=== PATIENT | female | born 1995 | race Hispanic/Latino ===

== ENCOUNTER 2023-01-08 13:43 | Emergency (ER) | payer SELFPAY ==
[2023-01-08 13:43] VITALS: BP 125/59; PULSE 66; RESP 15; TEMP 36.7; O2SAT 100; BMI 24.1
--- NOTE | 2023-01-08 13:47 | EKG12_ITS ---
Test Reason : CP Blood Pressure : / mmHG Vent. Rate : 068 BPM Atrial Rate : 068 BPM P-R Int : 122 ms QRS Dur : 082 ms QT Int : 386 ms P-R-T Axes : 018 066 047 degrees QTc Int : 410 ms Normal sinus rhythm Normal ECG Confirmed by DMITRY WOLFE MD ([id number]), newspaper or periodical editor LAVERN MICHAUD ([id number]) on 01/09/2023 9:46:22 AM Referred By: TL Confirmed By:DMITRY WOLFE MD
--- NOTE | 2023-01-08 13:54 | NURSING ---
NO OLD EKGS
--- NOTE | 2023-01-08 14:00 | RAD_ITS ---
STUDY: X-RAY CHEST REASON FOR EXAM: Female, 27 years old. CP TECHNIQUE: Single AP portable view of the chest. COMPARISON: None. FINDINGS: The lungs are clear and expanded. There is no demonstrated pleural abnormality. Normal size heart. Normal mediastinum and mehreen. Normal visualized pulmonary arteries. Normal visualized aortic arch and descending thoracic aorta. Normal visualized thoracic spine. Normal visualized ribs, clavicles, and shoulders. There is no demonstrated abnormality of the visualized soft tissue structures of the upper abdomen. RAD/Chest 1 View (Portable) IMPRESSION: Normal x-ray examination of the chest. Electronically Signed: Des Fontenot MD at 14:13 EST ,
--- NOTE | 2023-01-08 15:38 | ED.VIS.CHEST ---
HPI History of Present Illness Chief Complaint: Chest Pain Informant: patient Onset/Context/Timing Onset: Today Location: Left Chest Current Severity: Mild Maximum Severity: Moderate Worsened By: Not Worsened By Breathing or Coughing Relieved By: Nothing Narrative Narrative: Patient states she started having some left neck discomfort last night while she was at work, persist today worse with moving her head certain directions, she has a little bit of pressure in her left ear. No URI symptoms or nasal congestion, but the pain radiates into the left side of her face. No fevers or chills. No coughing or shortness of breath. The discomfort in her chest is nonpleuritic. It feels like pressure and burning. She states she has had this before, but it does not happen very often. It has been there all day today. She has no past medical history and takes no prescriptions for anything and not a drug user. [facility] Medical History Neck pain Home Medications pantoprazole 40 mg tablet,delayed release 40 mg PO DAILY #30 tabs 01/08/23 [Rx Last Taken Unknown] Allergy/AdvReac Type Severity Reaction Status Date / Time No Known Allergies Allergy Verified 01/08/23 13:46 Social History Smoking Status: Never smoker ROS ROS ED Constitutional Constitutional ED: Denies chills or fever(s) Eyes Eyes: Denies change in vision or diplopia ENT ENT ED: Reports ear pain left and facial pain; Denies rhinorrhea or sore throat Cardiovascular Cardiovascular: Reports chest pain; Denies leg edema or palpitations Respiratory/Chest Respiratory/Chest: Denies cough or dyspnea Gastrointestinal Gastrointestinal: Denies abdominal pain, diarrhea, nausea or vomiting Genitourinary Genitourinary ED: Denies dysuria or hematuria Musculoskeletal Musculoskeletal: Reports neck pain; Denies back pain Integumentary Denies abscess or rash Neurologic Neurologic: Denies headache(s), paresthesias or weakness Psychiatric Psychiatric: Denies anxiety or suicidal thoughts EXAM Physical Exam Const Vital Signs: 01/08/23 13:43 01/08/23 14:52 Temperature 98.1 F Temperature Source Temporal Pulse Rate 66 Respiratory Rate 15 Respiratory Effort Normal Non-Labored Blood Pressure 125/59 H Blood Pressure Mean 81 Pulse Ox 100 Oxygen Delivery Method Room Air Positive well nourished and well developed General Appearance ED: well developed and NAD HEENT Reports TM's clear and moist mucous membranes normocephalic and atraumatic Tympanic Membrane ED: Yes TM's clear Eyes PERRL and EOMs intact bilaterally Neck full ROM, no lymphadenopathy and supple Neck Narrative: Mild tenderness in the left sternocleidomastoid all the way down to the clavicle without bony tenderness. Full range of motion of the neck without any significant limitation. General: tenderness Chest Wall inspection of chest normal and palpation of chest normal Resp normal respiratory effort, no retractions and clear to auscultation bilaterally Effort and Inspection: able to speak in complete sentences Cardio regular rate, regular rhythm and no murmurs Rate: Negative for tachycardic GI non-tender and non-distended Auscultation: normoactive bowel sounds Palpation: soft Back/Spine no CVA tenderness General Back: other FROM Extremity normal to inspection and no calf tenderness General Extremety ED: Negative for edema, pulses abnormal or tenderness General Extremity: Negative for edema or pulses abnormal Neuro oriented x3, CN's II-XII intact bilaterally and no sensory deficits noted Sensorium / Orientation: awake and alert Motor Exam: strength 5/5 throughout Psych mental status grossly normal Skin no rashes or lesions noted and no wounds MDM MDM MDM Narrative Medical decision making narrative: Patient thinks her discomfort in her chest may be worse when she is lying down. It is very mild right now. Her EKG is normal, her chest x-ray is normal, her PERC score is 0. Therefore there is no reason to work-up further in order to rule out pulmonary embolus, and I do not think this is cardiac either. She was given Mylanta. This did help her chest discomfort some. I am going to prescribe her PPI discharged home to follow-up as an outpatient. The left facial pain may be referred from the muscle pain in her neck. She does not have any distention of veins in her head or neck to suggest a vascular issue. Radiography Chest X-Ray - ED: 1 View, Read by ED Physician, Normal and No Acute Disease Diagnostic Testing: Clinical Impression(s) from Imaging Studies Chest X-Ray 01/08/23 14:00 IMPRESSION: Normal x-ray examination of the chest. Electronically Signed: Des Fontenot MD at 14:13 EST , Rhythm Strip Rhythm Strip: Sinus Rhythm Rate: 65 Ectopy: None EKG Initial EKG: Attestation: I personally reviewed and interpreted this EKG as follows: Interpretation: Sinus Rhythm and No Acute Injury Pattern Comments: Normal EKG Discharge Plan Triage Chief Complaint: Chest Pain ED Provider: Winston Cortez Dx/Rx/DC Orders Clinical Impression: Left-sided chest pain, Acute cervical myofascial strain Instructions: ED Chest Pain, Noncardiac, ED Neck Sprain or Strain Prescriptions: New pantoprazole 40 mg tablet,delayed release (DR/EC) 40 mg PO DAILY Qty: 30 0RF Primary Care Provider: Care Physician,No Primary Referrals: Care Physician,No Primary [Primary Care Provider] - Doctor,Your [Non-Staff] - As Needed Disposition Disposition: Home, Self Care
[2023-01-08] MEDS: Mag Hydrox/Al Hydrox/Simeth 30 ML UDC PO (15:41)
== END 2023-01-08 17:13 | disposition home or self-care (01) ==
PROVIDERS: Emergency Provider Emergency Medicine; Visit Provider Emergency Medicine
DX: R07.9 Chest pain, unspecified (principal); S16.1XXA Strain of muscle, fascia and tendon at neck level, initial encounter; X58.XXXA Exposure to other specified factors, initial encounter
CPT/HCPCS: 71045; 93005; 99283

== ENCOUNTER 2024-06-13 00:16 | Emergency (ER) | payer OTHER, SELFPAY ==
[2024-06-13 00:18] VITALS: BP 113/97; PULSE 78; RESP 18; TEMP 36.3; O2SAT 98; BMI 25.6
--- NOTE | 2024-06-13 01:00 | CT_ITS ---
INDICATION: abdominal pain EXAMINATION: CT Abdomen And Pelvis W/ Contrast Injection TECHNIQUE: Helically acquired images were obtained of the abdomen and pelvis with sagittal and coronal reconstructed images. Individualized dose optimization techniques were used for this CT. IV contrast dosage and agent: 100 mL of Isovue-370. Oral contrast: None. COMPARISON: None. FINDINGS: VESSELS: No abdominal aortic aneurysm or dissection. LIVER: No evidence of a mass. No intrahepatic or extrahepatic biliary duct dilation. GALLBLADDER: No calcified stones. No evidence of cholecystitis. PANCREAS: No focal solid or cystic mass. No evidence of pancreatitis. SPLEEN: Normal. ADRENAL GLANDS: Normal. KIDNEYS AND URETERS: No urinary tract stone. No hydronephrosis or hydroureter. No significant asymmetric perinephric stranding. URINARY BLADDER: Unremarkable. BOWEL: No evidence of diverticulosis or diverticulitis. Appendix appears normal. No evidence of bowel obstruction. REPRODUCTIVE ORGANS: No evidence of a pelvic mass. PERITONEUM: No intraabdominal free fluid or free air. LYMPH NODES: No pathologically enlarged mesenteric or retroperitoneal lymph nodes. ABDOMINAL WALL: No abdominal or pelvic wall hernia. BONES: No acute abnormality. LOWER CHEST: Visualized lung bases are unremarkable. CT/Abdomen/Pelvis W IV Cont ONLY IMPRESSION: No acute abnormality. Electronically Signed: Jean Paul Harrison DO at 3:23 EDT ,
--- NOTE | 2024-06-13 01:08 | EDS_ITS ---
HPI History of Present Illness Chief Complaint: Other, Pain/Inj Informant: patient Narrative Narrative: 28-year-old female presenting to the emergency room with abdominal and back pain of 2 weeks duration. Patient states that she has had this pain in the low back that radiates from the front of her abdomen mostly right-sided. Started 2 weeks ago. She was seen at [facility] urgent care and reportedly had a abdominal ultrasound on Thursday. She does not know the results of this and cannot get her MyChart to work. She states that it had been controlled with Motrin but is not currently controlled. She denies any urinary or bowel symptoms. No fevers or vomiting. She denies any known medical problems or prior surgeries. No known drug allergies. No recent trauma. 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 She points to the low lumbar sacral region as the area that hurts [facility] Medical History Neck pain Home Medications ?Medication ?Instructions ?Recorded ?Last Taken ?Type NK 06/13/24 Unknown History cyclobenzaprine 10 mg tablet 10 mg PO TID PRN Muscle Spasm #15 06/13/24 Unknown Rx TABLETS hydrocodone-acetaminophen 5-325mg 1 tab PO Q6H PRN PRN Pain 3 days 06/13/24 Unknown Rx 5mg-325mg #10 TABLETS Allergy/AdvReac Type Severity Reaction Status Date / Time No Known Allergies Allergy Verified 06/13/24 00:18 Social History Smoking Status: Never smoker ROS ROS ED Constitutional Constitutional ED: Denies chills, fever(s) or weight loss Eyes Eyes: Denies change in vision or diplopia ENT ENT ED: Denies ear pain, rhinorrhea or sore throat Cardiovascular Cardiovascular: Denies chest pain, orthopnea, palpitations or racing heartbeat Respiratory/Chest Respiratory/Chest: Denies cough, dyspnea or orthopnea Gastrointestinal Gastrointestinal: Reports abdominal pain; Denies constipation, diarrhea, nausea or vomiting Genitourinary Genitourinary ED: Denies dysuria, hematuria or urinary frequency Musculoskeletal Musculoskeletal: Reports back pain; Denies arthralgias, myalgias or neck pain Integumentary Denies abscess or rash Neurologic Neurologic: Denies headache(s) or weakness Psychiatric Psychiatric: Denies anxiety, depression, suicidal ideation or suicidal thoughts Endocrine Endocrinology: Denies polydipsia, polyphagia or polyuria Allergic/Immunologic Allergic/Immunologic ED: Denies mouth swelling, tongue swelling or urticaria EXAM Physical Exam Const Vital Signs: 06/13/24 00:18 06/13/24 00:21 06/13/24 02:18 Temperature 97.4 F L Temperature Source Temporal Pulse Rate 78 68 Respiratory Rate 18 15 Respiratory Effort Non-Labored Short of Breath Respiratory Pattern Normal Blood Pressure 113/97 H 110/63 Blood Pressure Mean 102 78 Pulse Ox 98 98 Oxygen Delivery Method Room Air Room Air 06/13/24 04:00 Temperature Temperature Source Pulse Rate 62 Respiratory Rate 16 Respiratory Effort Respiratory Pattern Blood Pressure 117/67 Blood Pressure Mean 83 Pulse Ox 100 Oxygen Delivery Method Room Air Positive well nourished and well developed General Appearance ED: well developed HEENT Reports normocephalic, head/scalp atraumatic and moist mucous membranes Eyes PERRL and EOMs intact bilaterally Neck no lymphadenopathy, supple and no JVD Resp normal respiratory effort and clear to auscultation bilaterally Cardio regular rate, regular rhythm and no murmurs GI Auscultation: normoactive bowel sounds Palpation: soft and tender RLQ, RUQ and suprapubic Back/Spine no CVA tenderness and normal ROM Extremity normal to inspection General Extremety ED: Negative for edema General Extremity: Negative for edema Neuro oriented x3 and CN's II-XII intact bilaterally Sensorium / Orientation: alert Motor Exam: strength 5/5 throughout Psych mental status grossly normal Mood & Affect: Negative for depressed or tearful Skin no rashes or lesions noted and no wounds MDM MDM MDM Narrative Medical decision making narrative: Differential diagnosis includes but not limited to back sprain strain disc herniation shingles abdominal pain includes colitis UTI ovarian cyst appendicitis colitis kidney stone pyelonephritis Basic blood work including CBC BMP liver lipase essentially negative. test negative urinalysis normal CT ab pelvis does not demonstrate anything acute to explain her symptoms. I do not know what to make of her symptoms. I have a hard time feeling that the low back is going to cause radiation into the abdomen particularly in the area that she is describing which is the very low back. I am not seeing any thing acute on the CT. The abdominal exam is pretty benign other than some mild tenderness. She is not vomiting having fevers it has been 2 weeks. I can write for some pain medication we can try some muscle relaxants. Would recommend PCP follow-up if not improving. She needs to obtain the results of her ultrasound to see if that provides any insight. History & Record Review Discussion w/independent historian: Patient Lab Data Attestation: I reviewed the patient's lab results. Labs: Laboratory Results - last 24 hr 06/13/24 06/13/24 01:07 03:17 WBC 10.0 RBC 4.44 Hgb 12.4 Hct 38.2 MCV 86.0 MCH 27.9 MCHC 32.5 RDW Std Deviation 41.2 RDW Coeff of Dario 13.3 Plt Count 229 MPV 10.7 Immature Gran % (Auto) 0.400 Neut % (Auto) 53.2 Lymph % (Auto) 37.1 [place] % (Auto) 8.1 Eos % (Auto) 1.0 Baso % (Auto) 0.2 Absolute Neuts (auto) 5.3 Absolute Lymphs (auto) 3.71 Nucleated RBC % 0 Sodium 139 Potassium 3.5 Chloride 107 Carbon Dioxide 24.0 Anion Gap 8 BUN 14 Creatinine 0.70 Estim Creat Clear Calc 101.54 Est GFR (MDRD) Af Amer 128 Est GFR (MDRD) Non-Af 106 BUN/Creatinine Ratio 19.9 Glucose 106 Calcium 9.0 Total Bilirubin 0.20 Direct Bilirubin 0.11 AST 14 L ALT 16 Alkaline Phosphatase 107 Total Protein 7.4 Albumin 3.7 Globulin 3.7 Lipase 21 Serum , Qual NEGATIVE Urine Color Straw Urine Clarity Clear Urine pH 7.0 Ur Specific [place] 1.010 Urine Protein 15 H Urine Glucose (UA) Normal Urine Ketones Negative Urine Occult Blood Negative Urine Nitrite Negative Urine Bilirubin Negative Urine Urobilinogen Normal Ur Leukocyte Esterase Negative Urine RBC 0 SEEN Urine WBC 0 SEEN Ur Squamous Epith Cells 0-5 SEEN Urine Bacteria 0 SEEN Urine Mucus 0 SEEN Radiography Diagnostic Testing: Clinical Impression(s) from Imaging Studies Abdomen/Pelvis CT 06/13/24 01:00 IMPRESSION: No acute abnormality. Electronically Signed: Jean Paul Harrison DO at 3:23 EDT , Discharge Plan Triage Chief Complaint: Other, Pain/Inj ED Provider: Rubén Head Dx/Rx/DC Orders Clinical Impression: Abdominal pain, Back pain Instructions: Abdominal Pain, ED Back Pain (Acute or Chronic) Prescriptions: New hydrocodone-acetaminophen 5-325 mg tablet 1 tab PO Q6H PRN PRN (Reason: Pain) 3 Days Qty: 10 0RF cyclobenzaprine 10 mg tablet 10 mg PO TID PRN (Reason: Muscle Spasm) Qty: 15 0RF No Action NK Primary Care Provider: Care Physician,No Primary Referrals: Loni Norman [Non-Staff] - 3-5 Days if not improving Care Physician,No Primary [Primary Care Provider] - Print Language: Portuguese Disposition Disposition: Home, Self Care
[2024-06-13 01:18] LABS: Absolute Lymphocyte Count 3.71 X10^3/uL (0.83-4.51); Absolute Neutrophil Count 5.3 X10^3/uL (2.0-7.7); Basophil# 0.02 X10^3/uL; Basophil% 0.2 % (0-1); Hematocrit 38.2 % (37-47); Hemoglobin 12.4 g/dL (12.0-15.0); Lymphocyte # 3.71 X10^3/ul (0.83-4.51); Lymphocyte % 37.1 % (19-41); Mean Corp Hgb Conc 32.5 g/dL (32-36); Mean Corpuscular Hgb 27.9 pg (27.0-32.0); Mean Platelet Vol. 10.7 fl (6.2-12.0); Monocyte# 0.81 X10^3/uL; Monocyte% 8.1 % (0-10); NRBC Flagged by Analyzer 0 % (0-5); Neutrophil # 5.33 X10^3/uL (2.7-7.7); Neutrophil % 53.2 % (47-70); Platelet Count 229 K/mm3 (150-450); RBC Distribution Width CV 13.3 % (11.6-14.6); RBC Distribution Width SD 41.2 fl (35.1-43.9); Red Blood Count 4.44 M/mm3 (4.2-5.4)
[2024-06-13 01:39] LABS: Internal QC Validated? YES +Cl - CLEAR BKGD; Pregnancy, Serum, hCG Quali. NEGATIVE Negative; Record Kit Lot#, Serum Preg. 772476
[2024-06-13 02:07] LABS: AST(SGOT) 14 U/L (15-37); Alanine Aminotransfer ALT/SGPT 16 U/L (13-56); Albumin, Serum 3.7 g/dL (3.2-5.0); Alkaline Phosphatase 107 U/L (45-117); Anion Gap 8 (5-15); BUN 14 mg/dL (7-18); BUN/Creat Ratio 19.9 RATIO (10-20); Bilirubin, Direct 0.11 mg/dL (0.00-0.30); Chloride 107 mmol/L (98-107); EST Glomerular Filtration Rate 106 mL/min (>60); Est Glom Filt Rate - Afr Amer 128 mL/min (>60); Estimated Creatinine Clearance 101.54 ml/min; Globulin 3.7 g/dL (2.2-4.2); Glucose 106 mg/dL (74-106); Lipase 21 U/L (13-75); Potassium 3.5 mmol/L (3.5-5.1); Protein, Total 7.4 g/dL (6.4-8.2); Sodium Level 139 mmol/L (136-145)
[2024-06-13 02:18] VITALS: BP 110/63; PULSE 68; RESP 15; O2SAT 98
[2024-06-13 03:29] LABS: Bacteria 0 SEEN /hpf (None Seen); Mucous, Urine 0 SEEN /hpf (<or=2+); Red Blood Cells-Urine 0 SEEN /hpf (0-5); White Blood Cells 0 SEEN /hpf (0-5)
[2024-06-13 03:30] LABS: Color, Urine Straw (Yellow); Glucose, Dipstick Normal (Normal); Ketone-Dipstick Negative (Negative); Leukocyte Esterase-Dipstick Negative /ul (Negative); Nitrite-Dipstick Negative (Negative); Occult Blood-Urine Negative /ul (Negative); Protein-Dipstick 15 mg/dl (Negative); Urine Bilirubin Dipstick Negative (Negative); Urine Clarity Clear (Clear); Urine Urobilinogen Normal (Normal)
[2024-06-13 04:00] VITALS: BP 117/67; PULSE 62; RESP 16; O2SAT 100
[2024-06-13 04:43] LABS: Squamous Epithelial Cells - UA 0-5 SEEN /hpf (5-10)
[2024-06-13 05:27] VITALS: BP 110/72; PULSE 61; RESP 16; TEMP 37; O2SAT 100
== END 2024-06-13 05:33 | disposition home or self-care (01) ==
PROVIDERS: Emergency Provider Emergency Medicine; Visit Provider Emergency Medicine
DX: M54.50 Low back pain, unspecified (principal); R10.11 Right upper quadrant pain; R10.31 Right lower quadrant pain
CPT/HCPCS: 74177; 80048; 80076; 81001; 83690; 84703; 85025; 99283; Q9967; A4216